=== PATIENT | female | born 2000 ===

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

== ENCOUNTER → 2023-10-17 12:36 | Outpatient (BNVA) | payer SELFPAY | PROVIDERS: PCP Nurse Practitioner Family; Visit Provider Internal Medicine | DX: Z02.1 Encounter for pre-employment examination (principal) ==

== ENCOUNTER → 2023-10-28 10:22 | Outpatient (BNVA) | payer SELFPAY | PROVIDERS: PCP Nurse Practitioner Family | DX: R76.11 Nonspecific reaction to tuberculin skin test without active tuberculosis (principal) ==

== ENCOUNTER 2024-08-27 08:15 | Outpatient (AMB) | payer OTHER, SELFPAY ==
[2024-08-27 08:22] VITALS: BP 100/70; PULSE 74; O2SAT 97; BMI 23.8
--- NOTE | 2024-08-27 08:22 | A.OFFPC_ITS ---
Vital Signs 08/27/24 08:22 Height 5 ft 5 in Weight 143 lb BMI 23.8 BP 100/70 Blood Pressure Location Lt brachial Position Sitting Pulse 74 Pulse Source Pulse Oximeter Pulse Oximetry (%) 97 Oxygen Delivery Method Room Air Intake Visit Reasons: annual exam Hydraulic Press Tender Required: No Accompanied by: Self / Same As Patient Allergies No Known Allergies Allergy (Verified 08/27/24 08:42) Medication List - Last Reconciled 08/27/24 by Kenya Weinberg MD levonorgestrel-ethinyl estrad 0.1-20 mg-mcg (Sronyx) 1 tab PO DAILY Tobacco use date assessed: 02/08/22 HPI HPI Comments History of Present Illness Details The patient is a 24-year-old female presenting for her physical exam with depression and anxiety. She reports experiencing moderate depression with a PHQ-9 score of 14 and associated anxiety symptoms. She describes an increase in anxiety following a difficult family vacation, leading to feelings of paranoia. The patient is not currently on medication for these conditions but expresses a desire to initiate treatment. She reports that her anxiety might have contributed to her experiencing a rapid heartbeat accompanied by a distressing sensation. The patient also details abnormal uterine bleeding lasting for approximately a month and a half, beginning before . This issue arose after altering her contraception routine by stopping control pills for two weeks. She plans to contact her industrial machinery mechanic-buffet server to discuss this side effect further. Additionally, the patient mentions increased urinary frequency, prompting a decision to check her blood sugar levels to rule out possible causes. Her notable family history includes hypertension, possible congestive heart failure, and breast cancer on her mother's side, along with a negative history of diabetes in her immediate family. She denies smoking and alcohol consumption. - Tdap vaccine administered on 05/13/2022 . - COVID-19 vaccine received in 2020. - Patient has received meningococcal and HPV vaccinations. - Planned baseline blood work, including cholesterol, blood sugar, kidney, and liver function tests, to be performed while fasting. - Pap smear done 2023. [facility] Medical History (Updated 08/27/24 @ 09:03 by Kenya Weinberg MD) Chlamydia infection BCP ( control pills) initiation Irregular menses Potential exposure to STD Surgical History History of dental surgery Family History (Updated 08/27/24 @ 08:47 by Kenya Weinberg MD) Mother HTN (hypertension) Congestive heart failure Father DM (diabetes mellitus) HTN (hypertension) Depression Other Mental health disorder Social History Housing: House Alcohol intake: never Patient Tobacco Use Status: Never used Tobacco e-Cigarette/Vaping Use: Never Used Second Hand Smoke Exposure: No service: No Current occupational status: unemployed Sexual orientation: Straight/Heterosexual Cognitive needs: No Hearing needs: No Vision needs: Yes (glasses) Female Reproductive History Menstrual Age of Menarche: 14 Questionnaire PHQ-9 Over the last 2 weeks, how often have you been bothered by any of the following problems? 1. Little interest or pleasure in doing things: more than half the days 2. Feeling down, depressed, or hopeless: more than half the days 3. Trouble falling or staying asleep, or sleeping too much: nearly every day 4. Feeling tired or having little energy: more than half the days 5. Poor appetite or overeating: not at all 6. Feeling bad about yourself - or that you are a failure or have let yourself or your family down: more than half the days 7. Trouble concentrating on things, such as reading the newspaper or watching television: nearly every day 8. Moving or speaking so slowly that other people could have noticed. Or the opposite - being so fidgety or restless that you have been moving around a lot more than usual: not at all 9. Thoughts that you would be better off or of hurting yourself in some way: not at all Total score: 14 Depression Screening Interpretation: Positive Depression Screening Follow-up: Existing condition, Community Mental Health Worker F/U and Follow-up Visit Requested Depression Screening Done: Yes 49976 - PHQ-9 Billing: Yes Source: Developed by Drs. Srinivasa Choi, Tania Salinas, Sathish Arreola and colleagues, with an educational heath from [email or web address]. Thrive Questionnaire Date Thrive assessed: 08/27/24 I am a: Patient What is your living situation today?: I have a steady place to live Within the past 12 months, did the food you bought not last and you didn't have the money to get more?: I choose not to answer this question Within the past 12 months, did you worry whether your food would run out before you got money to buy more?: I choose not to answer this question Do you have trouble paying for medicines?: No Do you have trouble getting transportation to medical appointments?: No Do you have trouble paying your heating and electricity bill?: No Do you have trouble taking care of your child, family member or friend?: No Do you have trouble with day-to-day activities such as bathing, preparing meals, shopping, managing finances, etc.?: No Are you currently unemployed and looking for a job?: No Are you interested in more education?: No Please select the resources that you would like help with: None Currently or been in a relationship where the following occur: No concerns reported THRIVE Score: 0 AUDIT C Alcohol Use Questionnaire (AUDIT-C) 1. How often do you have a drink containing alcohol?: Never 3. How often do you have six or more drinks on one occasion?: Never Total Score: 0 Score Reviewed/Action Taken: No ADRIENNE-7 AMB Questionnaire ADRIENNE-7 Date ADRIENNE - 7 assessed: 08/27/24 Feeling nervous, anxious, or on edge: 1 = Several days Not being able to stop or control worryin = Several days Worrying too much about different things: 1 = Several days Trouble relaxin = Several days Being so restless that it is hard to sit still: 2 = More than half the days Becoming easily annoyed or irritable: 2 = More than half the days Feeling afraid as if something awful might happen: 1 = Several days Total ADRIENNE-7 score (0-4 normal; 5-9 mild; 10-14 moderate; 15-21 severe): 9 Source: Developed by Drs. Srinivasa Choi, Tania Salinas, Sathish Arreola and colleagues, with an educational heath from [employer]. ADRIENNE-7 Assessment Billing ADRIENNE-7 Assessment Tool: ADRIENNE-7 Assessment 91689 Review of Systems Const All systems reviewed & are unremarkable except as noted in HPI and below Card Denies chest pain at rest, Denies chest pain with activity, Denies edema, Denies irregular heart rhythm, Denies claudication, Denies dyspnea, Denies dyspnea on exertion, Denies orthopnea, Denies paroxysmal nocturnal dyspnea and Denies slow heart rate Resp Denies cough, Denies dyspnea and Denies dyspnea on exertion GI Denies abdominal pain, Denies change in bowel habits, Denies excessive flatus, Denies nausea and Denies vomiting Skin/Breast Denies bleeding lesions, Denies changing lesions and Denies rash Neuro Denies behavioral changes and Denies lack of coordination Psych Reports anxiety, Denies behavioral changes and Reports depression Endo Denies cold intolerance Isaac/Lymph Denies easy bleeding and Denies easy bruising Aller/Immun Denies urticaria Physical exam (Primary Care) Vital Signs: Last Vital Signs Pulse 74 08/27/24 08:22 BP 100/70 08/27/24 08:22 Pulse Ox 97 08/27/24 08:22 Oxygen Delivery Method Room Air 08/27/24 08:22 BMI result Body Mass Index 23.8 Tobacco/Smoking Status: Tobacco use Status Tobacco use date assessed 02/08/22 08/27/24 08:27 Patient Tobacco Use Status Never used Tobacco 08/27/24 08:27 e-Cigarette/Vaping Use Never Used 08/27/24 08:27 PHQ-9: PHQ-9 Score PHQ-9: Total score 14 08/27/24 08:29 Depression Screening Interpretation: Positive Depression Screening Follow-up: Existing condition, Community Mental Health Worker F/U and Follow-up Visit Requested Thrive Assessment: Date of Thrive Assessment Date Thrive assessed 08/27/24 08/27/24 08:29 Currently or been in a relationship where the following occur: No concerns reported [facility] Head: Yes normal to inspection, Yes normocephalic and Yes atraumatic Ears: external ears normal Eyes General: appearance normal, both eyes and all related structures Eyelids: Yes eyelids normal Conjunctivae: conjunctivae normal Neck Neck: Yes normal visual inspection and Yes supple Resp Effort & Inspection: normal respiratory effort Auscultation: clear to auscultation bilaterally Cardio Jugular venous distension: no JVD Rate: regular rate Rhythm: regular rhythm Heart sounds: S1 normal heart sound present and S2 normal heart sound present GI Inspection: Yes normal to inspection Palpation (GI): Soft to palpation and nontender Auscultation: normal bowel sounds Skin General skin exam: no rashes or lesions noted Neuro General: no focal motor deficits Extrem General: Yes full ROM Psych Appearance: grossly normal Office Procedures Flu Questionnaire Does the patient have a severe egg allergy?: No Immunizations Fluarix Triv [id number] (PF) 45 mcg (15 mcg x 3)/0.5 mL IM syringe Performing Provider: Kenya Weinberg MD [place] [facility] [place] [facility] Documented (not given) by: CHRISSY Molina on 08/27/24 08:32 Reason Not Given: Patient Refused Coding Level of Care Code Est Pt Level 3 (30547) Est Pt Prev Care 18-39y(52851) Diagnoses Adult general medical exam Z00.00 Moderate major depression F32.1 ADRIENNE (generalized anxiety disorder) F41.1 Additional Codes ADRIENNE-7 Assessment Billing - ADRIENNE-7 Assessment Tool: ADRIENNE-7 Assessment 00360 ([id number]) PHQ-9 - 21649 - PHQ-9 Billing: Yes ([id number]) Time Spent (min) 32 Assessment & Plan Assessment & Plan (1) Adult general medical exam: Code(s): Z00.00 - Encounter for general adult medical examination without abnormal findings Category: Medical (2) Moderate major depression: Code(s): F32.1 - Major depressive disorder, single episode, moderate Category: Medical (3) ADRIENNE (generalized anxiety disorder): Code(s): F41.1 - Generalized anxiety disorder Category: Medical Plan - Start bupropion for depression and anxiety, with attention to potential sleepiness. - Order baseline blood work, including glucose and lipid panel, to assess overall health status. - Referral for psychiatric outpatient care for further evaluation and treatment of depression and anxiety. - Monitor patient?s response to bupropion and provide follow-up care. - Encourage patient to follow up with OBGYN regarding abnormal uterine bleeding and consider alternative contraception if indicated. Patient was informed and verbally consented to the use of an ambient scribe for clinic note documentation during this visit. I discussed with the patient the initiation of bupropion for the management of her depression and anxiety, highlighting its benefits and possible side effects, including the unusual potential for sleepiness. I emphasized the importance of follow-up with psychiatric outpatient services, as they may provide additional therapeutic options and refine her treatment plan. We discussed the necessity of contacting her OBGYN regarding prolonged uterine bleeding and considering alternative contraceptive options. Comprehensive baseline blood work was also outlined, ensuring no underlying conditions are contributing to her increased urinary frequency and overall health status. I encouraged the patient to remain engaged with psychiatric services and provided anticipatory guidance for medication adjustment and follow-up care. Orders: Orders Lipid Panel Today Z00.00 - Encounter for general adult medical examination without abnormal findings Influenza [id number] Immunization Today Z23 - Encounter for immunization Comprehensive Harmans. Panel Fast Today Z00.00 - Encounter for general adult medical examination without abnormal findings Referrals Psychiatry Outpatient Consultation Service F32.1 - Major depressive disorder, single episode, moderate, F41.1 - Generalized anxiety disorder Patient Instructions: - Begin taking bupropion daily in the morning; if drowsiness occurs, take it with caution. - Schedule and complete baseline fasting blood tests. - Follow up with your OBGYN about the abnormal uterine bleeding. - Attend psychiatric outpatient appointments as soon as possible. - Monitor for any side effects from the new medication and report any concerns. - Maintain abstinence from smoking and alcohol.
== END 2024-08-27 08:57 | disposition home or self-care (01) ==
PROVIDERS: PCP Nurse Practitioner Family; Visit Provider Internal Medicine
DX: Z00.00 Encounter for general adult medical examination without abnormal findings (principal); F32.1 Major depressive disorder, single episode, moderate; F41.1 Generalized anxiety disorder; Z23 Encounter for immunization

== ENCOUNTER 2024-08-27 08:15 | Outpatient (REF) | payer OTHER, SELFPAY ==
[2024-08-27 10:07] LABS: Alanine Aminotransferase 22 U/L (0-31); Albumin Level 4.2 g/dL (3.5-5.0); Alkaline Phosphatase 70 U/L (39-117); Anion Gap 10 (12-20); Aspartate Amino Transferase 24 U/L (5-31); Bilirubin Total 0.4 mg/dL (0.0-1.0); Blood Urea Nitrogen 14 mg/dL (9-16); Carbon Dioxide 27 mmol/L (22-29); Chloride 110 mmol/L (96-108); Cholesterol 160 mg/dL (<200); Estimated Glomerular Filt Rate > 60; Glucose Fasting 95 mg/dL (60-99); HDL Cholesterol 41 mg/dL (>40); LDL Cholesterol Calculated 104 mg/dL (<100); Potassium 4.1 mmol/L (3.3-5.1); Sodium 143 mmol/L (135-145); Total Protein 7.7 g/dL (6.5-8.0); Triglycerides 76 mg/dL (<150)
== END 2024-08-27 08:16 | disposition home or self-care (01) ==
LOC: HO.LAB 08:15
PROVIDERS: PCP Internal Medicine; Visit Provider Internal Medicine
DX: Z00.00 Encounter for general adult medical examination without abnormal findings (principal); F32.1 Major depressive disorder, single episode, moderate; F41.1 Generalized anxiety disorder
CPT/HCPCS: 36415; 80053; 80061; 96127; 99212; 99395

== ENCOUNTER 2024-12-20 10:36 | Outpatient (REF) | payer OTHER, SELFPAY ==
[2024-12-20 12:23] LABS: HCG Quantitative 147 mIU/mL
[2024-12-20 12:59] LABS: Appearance Urine Clear; Color Urine Yellow; Glucose Urine UA Negative (Negative); Leukocyte Esterase Urine Negative (Negative); Nitrite Urine Negative (Negative); Specific Gravity - Urine >= 1.030 (1.005-1.025); Urine Blood Negative (Negative); Urine Ketones Trace mg/dL (Negative); Urine Protein Negative (Neg-Trace)
== END 2024-12-20 10:37 | disposition home or self-care (01) ==
LOC: HO.LAB 10:36
PROVIDERS: PCP Internal Medicine
DX: N91.2 Amenorrhea, unspecified (principal); R35.0 Frequency of micturition
CPT/HCPCS: 36415; 81003; 84702; 99212

== ENCOUNTER 2024-12-20 10:36 | Outpatient (AMB) | payer OTHER, SELFPAY ==
--- NOTE | 2024-12-20 09:44 | MHC.PC.OV ---
Vital Signs 12/20/24 10:43 Height 5 ft 5 in Weight 141 lb 2 oz BMI 23.5 BP 130/62 Blood Pressure Location Lt brachial Position Sitting Pulse 95 Pulse Source Pulse Oximeter Temp 97.5 F Temp Source Temporal Artery Scan Pulse Oximetry (%) 99 Oxygen Delivery Method Room Air Intake Visit Reasons: Referral, reschedule Intake Note: Patient is here to follow up on precise winder. Strike Warfare/Missile Systems Officer Required: No Ram Press Operator: Present Accompanied by: Dependent of Minor Dependent Allergies No Known Allergies Allergy (Verified 12/20/24 10:43) Tobacco use date assessed: 12/20/24 Dental Screening Dental Screen Date: 12/20/24 Did you have a dental visit in the last 12 months?: No Did you have a dental problem in the last 6 months where you did not have access to dental care?: No Was dental information given to patient?: Patient has dentist HPI Referral, reschedule HPI Details The patient is 24 year old female wit significant past medical history of depression and anxiety, on control. Patient of Dr. Egan, last seen in office on 08/27/24 The patient is a 24 year old female presenting with irregular menstruation and amenorrhea. She has experienced the absence of menstruation for two months, supported by negative home tests. The patient has a history of recent discontinuation of oral contraceptive pills which caused her to experience frequent menstrual periods every other week, leading to her decision to stop the medication. Since stopping, she has not had a menstrual period. She also reports urinary frequency without other significant symptoms, which is similar to when she was with her son in the past. [facility] Medical History (Updated 12/20/24 @ 11:08 by JAIMIE Neumann) Chlamydia infection BCP ( control pills) initiation Irregular menses Potential exposure to STD Surgical History History of dental surgery Family History Mother HTN (hypertension) Congestive heart failure Father DM (diabetes mellitus) HTN (hypertension) Depression Other Mental health disorder Social History Housing: House Alcohol intake: never Patient Tobacco Use Status: Never used Tobacco e-Cigarette/Vaping Use: Never Used Second Hand Smoke Exposure: No service: No Current occupational status: unemployed Sexual orientation: Straight/Heterosexual Cognitive needs: No Hearing needs: No Vision needs: Yes (glasses) Female Reproductive History Menstrual Age of Menarche: 14 Questionnaire Thrive Questionnaire Date Thrive assessed: 08/27/24 ADRIENNE-7 AMB Questionnaire ADRIENNE-7 Date ADRIENNE - 7 assessed: 08/27/24 Source: Developed by Drs. Srinivasa Choi, Tania Salinas, Sathish Arreola and colleagues, with an educational heath from [employer]. Review of Systems Const Details: - Genitourinary: Reports urinary frequency. - Reproductive: Reports amenorrhea; previously irregular menstruation every other week while on control. - General: Denies nausea. Eyes Reports as per HPI ENT Reports no additional complaints Card Denies chest pain, Denies leg edema and Denies lightheadedness Resp Denies cough, Denies hemoptysis and Denies wheezing GI Denies abdominal pain, Denies melena, Denies constipation, Denies diarrhea and Denies vomiting Reports abnormal menses, Denies dysuria, Denies sexual dysfunction, Denies urinary hesitancy, Denies urinary urgency and Reports other (urinary frequency) Aller/Immun Denies wheezing Physical exam (Primary Care) Tobacco/Smoking Status: Tobacco use Status Tobacco use date assessed 02/08/22 12/20/24 09:45 Patient Tobacco Use Status Never used Tobacco 12/20/24 09:45 e-Cigarette/Vaping Use Never Used 12/20/24 09:45 Thrive Assessment: Date of Thrive Assessment Date Thrive assessed 08/27/24 12/20/24 09:45 Const General: healthy appearing, no acute distress, alert and awake Nutritional Appearance: well nourished HENOR Ears: external ears normal General nose exam: Normal external nose present Eyes Conjunctivae: conjunctivae normal Sclerae: sclerae normal Resp Effort & Inspection: normal respiratory effort and not tachypneic Auscultation: no crackles, no rales, no rhonchi and no wheezes Cardio Rate: regular rate Rhythm: regular rhythm Heart sounds: no murmurs and normal S1 and S2 GI Palpation (GI): Soft to palpation, nontender, no hepatomegaly and no splenomegaly Auscultation: normal bowel sounds General: Yes no CVA tenderness Manual OB Exam: Deferred manual OB exam Back/Spine/Pelvis Back: no CVA tenderness Skin General skin exam: no rashes or lesions noted and dry skin Coding Level of Care Code Est Pt Level 3 (70853) Diagnoses Amenorrhea N91.2 Frequent urination R35.0 Time Spent (min) 28 Assessment & Plan Assessment & Plan (1) Amenorrhea: Code(s): N91.2 - Amenorrhea, unspecified Category: Medical (2) Frequent urination: Code(s): R35.0 - Frequency of micturition Category: Medical Plan The approach involves addressing the history of irregular menstruation and amenorrhea due to previous contraceptive use. Will send the patient to have an serum HCG to further evaluate. A urinalysis will help understand the urinary frequency. Gynecological referral was placed. The patient was informed that she will receive a call to schedule an appointment. She was also given the number to reach out to them if she is waiting for an extended period. Patient was informed and verbally consented to the use of an ambient scribe for clinic note documentation during this visit. Orders: Orders HCG Quantitative Today N91.2 - Amenorrhea, unspecified, R35.0 - Frequency of micturition UA CC w/rflx Micro + Cult Today N91.2 - Amenorrhea, unspecified, R35.0 - Frequency of micturition Referrals SANITARY LANDFILL OPERATOR Referral N91.2 - Amenorrhea, unspecified, Z01.419 - Encounter for gynecological examination (general) (routine) without abnormal findings Patient Instructions: - Arrange blood test and urinalysis as planned. - Monitor for any further changes in menstruation and report them. - Contact the gynecological specialist for follow-up.
[2024-12-20 10:43] VITALS: BP 130/62; PULSE 95; TEMP 36.4; O2SAT 99; BMI 23.5
--- OUTSIDE RECORDS SUMMARY | 2024-12-20 12:32 | XMS_ITS ---
Author Organization [facility] Address [address] [place] [id number] Care Team Providers Care Contract Runner Name Role Phone TERRI CARRION Unavailable [phone] REASON FOR VISIT irregular menses Social History Sex Assigned At : Social History Observation Description Sex Assigned At Female Encounters Encounter Location Date Provider Diagnosis [facility] [address] [id number] 11/2023 TERRI CARRION Plan Of Treatment No Information Progress Notes * Jason MATTaDOB:[birth year] (24 yo F)Acc No.[id number]:07/28/2024 Progress Notes Patient:?Aisha MATT Provider:NAS CARRION :2000???Age:24 Y???Sex:Female D ate:07/28/2024 Address:[address] [place], [place] [id number] Subjective: * Chief Complaints: * ???1. Irregular menses. * Medical History:? Objective: * Vitals:? Assessment: Plan: * Treatment: * Billing Information: * Visit Code:? * Procedure Codes:? * Electronic signature of MARGA CARRION CNM on 12/20/2024 at 12:32 PM EDT Sign off status: Pending * Provider:NAS CARRION Date:?07/28/2024 Generated for Cristian gomez/Henreitta/eTransmitting on:?12/20/2024 12:32 PM EDT
--- OUTSIDE RECORDS SUMMARY | 2024-12-20 12:32 | XMS_ITS ---
Author Organization [facility] Address [address] [place] [phone] Care Team Providers Care Waterproofing Mixer Name Role Phone TERRI CARRION Unavailable [phone] REASON FOR VISIT Pill check Social History Sex Assigned At : Social History Observation Description Sex Assigned At Female Encounters Encounter Location Date Provider Diagnosis [address] [id number] TERRI CARRION Plan Of Treatment No Information Progress Notes * Jason MATTaDOB:[birth year] (24 yo F)Acc No.[id number]:09/17/2024 Progress Notes Patient:?Aisha MATT Provider:NAS CARRION :2000???Age:24 Y???Sex:Female D ate:09/17/2024 Address:[address] [place], [place] [id number] Subjective: * Chief Complaints: * ???1. Pill check. * Medical History:? Objective: * Vitals:? Assessment: Plan: * Treatment: * Billing Information: * Visit Code:? * Procedure Codes:? * Electronic signature of MARGA CARRION CNM on 12/20/2024 at 12:32 PM EDT Sign off status: Pending * Provider:NAS CARRION Date:?09/17/2024 Generated for Cristian gomez/Henrietta/eTransmitting on:?12/20/2024 12:32 PM EDT
--- OUTSIDE RECORDS SUMMARY | 2024-12-20 12:32 | XMS_ITS ---
Author Organization [facility] Address [address] [place] [phone] Care Team Providers Care Chop Saw Operator Name Role Phone CAROLYN JARAMILLO Unavailable [phone] REASON FOR VISIT irregular periods Social History Sex Assigned At : Social History Observation Description Sex Assigned At Female Encounters Encounter Location Date Provider Diagnosis [facility] [address] [place] [address] [place] [phone] 08/09/2024 CAROLYN JARAMILLO Plan Of Treatment No Information Progress Notes * Jason BURNSaDOB:[birth year] (24 yo F)Acc No.[id number]:08/09/2024 Progress Notes Patient:?Aisha BURNS Provider:?Carolyn Jaramillo NP :2000???Age:24 Y???Sex:Female D ate:08/09/2024 Address:[address] [place], [place] [phone] Subjective: * Chief Complaints: * ???1. Irregular periods. * Medical History:? Objective: * Vitals:? Assessment: Plan: * Treatment: * Billing Information: * Visit Code:? * Procedure Codes:? * Electronic signature of OPAL JARAMILLO NP on 12/20/2024 at 12:32 PM EDT Sign off status: Pending * Provider:Jessa Jaramillo NP Date:? 024 Generated for Printi ng/Faxing/eTransmitting on:?12/20/2024 12:32 PM EDT
--- OUTSIDE RECORDS SUMMARY | 2024-12-20 12:32 | XMS_ITS | Patient Health Record ---
Author Organization [facility] Address [address] [facility] [address] [place], [place] [id number] Care Team Providers Care Fire Safety Manager Name Role Phone ERIK LEWIS Unavailable [phone] TERRI CARRION Unavailable [phone] Allergies No Known Allergies Results Component Value Reference Range Notes HCV Antibody-[id number] Reviewed date:06/21/2024 01:39:17 PM Interpretation:Negative Performing Lab:[facility], [address], [address], [place], Phone - [phone], Director - [facility] Notes/Report: Hep C Virus Ab Non Reactive Non Reactive HCV antibody alone does not differentiate between previously resolved infection and active infection. Equivocal and Reactive HCV antibody results should be followed up with an HCV RNA test to support the diagnosis of active HCV infection. Ct, Ng, Trich vag by LISETTE-183 [id number] Reviewed date:06/21/2024 01:43:46 PM Interpretation:Negative Performing Lab:[facility], [address], [address], [place], Phone - [phone], Director - [facility] Notes/Report: Chlamydia by LISETTE Negative Negative Gonococcus by LISETTE Negative Negative Trich vag by LISETTE Negative Negative HIV Ab/p24 Ag with Reflex-[id number] Reviewed date:06/21/2024 01:39:36 PM Interpretation:Negative Performing Lab:[facility] [address], [address], [place], Phone - [phone], Director - [facility] Notes/Report: HIV Ab/p24 Ag Screen Non Reactive Non Reactive HIV-1/HIV-2 antibodies and HIV-1 p24 antigen were NOT detected. There is no laboratory evidence of HIV infection. HIV Negative T pallidum Screening [place] -[id number] Reviewed date:06/21/2024 01:39:46 PM Interpretation:Negative Performing Lab:[address], [address], [place], Phone - [phone], Director - [facility] Notes/Report: T pallidum Antibodies Non Reactive Non Reactive Hepatitis B Surf Ab Quant-00 [id number] Reviewed date:06/18/2024 04:45:58 PM Interpretation:Not Immune Performing Lab:[facility], [address], [address], [place], Phone - [phone], Director - [facility] Notes/Report: Hepatitis B Surf Ab Quant <3.5 Immunity>10 mIU /mL Status of Immunity Anti-HBs Level Inconsistent with Immunity 0.0 - 10.0 Consistent with Immunity >10.0 HBsAg Screen-[id number] Reviewed date:06/21/2024 01:39:27 PM Interpretation:Negative Performing Lab:[facility], [address], [address], [place], Phone - [phone], Director - [facility] Notes/Report: HBsAg Screen Negative Negative Test, Urine Reviewed date:06/16/2024 11:00:47 AM Interpretation:Negative Performing Lab: Notes/Report: Negative Test, Urine neg Lot # [id number] Exp. Date Chlamydia/GC Amplification-1 [id number] Reviewed date:05/13/2024 01:14:31 PM Interpretation:Negative Performing Lab:[address], [address], [place], Phone - [phone], Director - [facility] Notes/Report: Clinical Information:SRC: URINE Chlamydia trachomatis, LISETTE Negative Negative Neisseria gonorrhoeae, LISETTE Negative Negative Test, Urine Reviewed date:05/03/2024 01:51:16 PM Interpretation:Negative Performing Lab: Notes/Report: Negative Test, Urine neg Lot # [id number] Exp. Date [id number] Reason For Referral No Information Medications Medication SIG (Take, Route, Fr equency, Duration) Notes Start Date End Date Status Aviane 0.1-20 MG-MCG 1 tablet Orally Onc e a day for 112 days 06/16/2024 Active Social History Sex Assigned At : Social History Observation Description Sex Assigned At Female Section Notes: Aptima/ bw Vital Signs Blood pressure diastolic 60 mm Hg 06/16/2024 Height 5'1 in 06/16/2024 Blood pressure systolic 90 mm Hg 06/16/2024 Weight 145.2 lbs 06/16/2024 BMI 27.43 kg/m2 06/16/2024 Encounters Encounter Location Date Provider Diagnosis [address] [id number] 05/03/2024 TERRI CARRION Encounter for pregna ncy test, result negative Z32.02 and Encounter for screening for infections with a predominantly sexual mode of transmission Z11.[address] [id number] 06/16/2024 TERRI CARRION Encounter for initia l prescription of contraceptive pills Z30.011 ; Encounter for test, result negative Z32.02 ; Encounter for screening for infections with a predominantly sexual mode of transmission Z11.3 ; Encounter for screening for human immunodeficiency virus [HIV] Z11.4 and Encounter for screening for other viral diseases Z11.59 Assessments Encounter Date Diagnosis (ICD Code) Assessment Notes Treatment Notes Treatment Clinical Notes Section Notes 05/03/2024 Encounter for test, result negative (ICD-10 - Z32.02) Discussed control, STI screening, emergency contraception, sexual coercion, family involvement and reproductive life planning. 05/03/2024 Encounter for screening for infections with a predominantly sexual mode of transmission (ICD-10 - Z11.3) 06/16/2024 Encounter for initial prescription of contraceptive pills (ICD-10 - Z30.011) Discussed control options. No CI's to CHCs. Reviewed benefits, risks and ACHES. May quick start with BUM x 7 days Reviewed that irreg cycles can occur after Depo use Need 2 out of 3 Sections from A-C Section A) Problems (only need one from below) Section B) Data (need at least one of the following categories in this section) Category 1: (Choose three of the following): Order Unique tests Section C) Risk (any one of the following) Prescription drug management (this counts for the whole section) 06/16/2024 Encounter for test, result negative (ICD-10 - Z32.02) Need 2 out of 3 Sections from A-C Section A) Problems (only need one from below) Section B) Data (need at least one of the following categories in this section) Category 1: (Choose three of the following): Order Unique tests Section C) Risk (any one of the following) Prescription drug management (this counts for the whole section) 06/16/2024 Encounter for screening for infections with a predominantly sexual mode of transmission (ICD-10 - Z11.3) Discussed STI risks, screenings that are available through [facility] and safe sex. For Hep B and C screening today. Clt aware of lab processing times and how to view results on portal and how positive results will be communicated Need 2 out of 3 Sections from A-C Section A) Problems (only need one from below) Section B) Data (need at least one of the following categories in this section) Category 1: (Choose three of the following): Order Unique tests Section C) Risk (any one of the following) Prescription drug management (this counts for the whole section) 06/16/2024 Encounter for screening for human immunodeficiency virus [HIV] (ICD-10 - Z11.4) Need 2 out of 3 Sections from A-C Section A) Problems (only need one from below) Section B) Data (need at least one of the following categories in this section) Category 1: (Choose three of the following): Order Unique tests Section C) Risk (any one of the following) Prescription drug management (this counts for the whole section) 06/16/2024 Encounter for screening for other viral diseases (ICD-10 - Z11.59) Need 2 out of 3 Sections from A-C Section A) Problems (only need one from below) Section B) Data (need at least one of the following categories in this section) Category 1: (Choose three of the following): Order Unique tests Section C) Risk (any one of the following) Prescription drug management (this counts for the whole section) 05/03/2024 Other 06/16/2024 Other Need 2 out of 3 Sections from A-C Section A) Problems (only need one from below) Section B) Data (need at least one of the following categories in this section) Category 1: (Choose three of the following): Order Unique tests Section C) Risk (any one of the following) Prescription drug management (this counts for the whole section) Plan Of Treatment No Information Insurance Providers Payer Name Payer Address Payer Phone Subscriber Number Group Number Insured Name Patient Relationship to Insured Coverage Start Date Coverage End Date MD MEDICAID ATT CLAIMS [address] [place] [id number] Aisha Burns Self - patient is the insured Medical (General) History Medical History History ICD Code FISHER's no aura
== END 2024-12-20 12:04 | disposition home or self-care (01) ==
LOC: HO.HMCH 10:37
PROVIDERS: PCP Internal Medicine
DX: N91.2 Amenorrhea, unspecified (principal); R35.0 Frequency of micturition